=== PATIENT | male | born 1975 | race Caucasian/White ===

== ENCOUNTER 2018-04-03 18:08 | Emergency (ER) | payer SELFPAY ==
[~2018-04-03] VITALS: Ht 175.3 cm; Wt 72.6 kg
[2018-04-03 18:08] VITALS: BP_SYST 134
[2018-04-03] MEDS ORDERED: IBUPROFEN 600 MG TABLET PO ONE (18:30)
[2018-04-03] MEDS ORDERED: CEPHALEXIN 500 MG CAPSULE PO ONE (18:30)
[2018-04-03 19:24] VITALS: BP_SYST 126
== END 2018-04-03 19:24 ==
LOC: SED 18:08
DX: L73.9 Follicular disorder, unspecified (principal)
CPT/HCPCS: 99283